=== PATIENT | male | born 1995 | race Hispanic/Latino ===

== ENCOUNTER 2022-01-12 15:55 | Emergency (ER) | payer OTHER ==
--- NOTE | 2022-01-12 17:13 | RAD REPORT ---
EXAM DESCRIPTION: RAD - Hand Right 3 View - 01/12/2022 4:43 pm CLINICAL HISTORY: PAIN COMPARISON: No comparisons FINDINGS/IMPRESSION: Fracture is present at the base of the fifth metacarpal. There is likely intra- articular extension. Soft tissue swelling is present.
--- NOTE | 2022-01-12 18:03 | ER ---
Nurse's Notes [facility] Name: Simón Perez Age: 26 yrs Sex: Male : 1995 Arrival Date: 01/12/2022 Time: 15:58 Bed 11 Private MD: Diagnosis: Displaced fracture of base of fifth metacarpal bone, right hand Presentation: 01/12 16:01 Chief complaint: Patient states: R hand pain after punching wall. Superficial abrasions ss noted to all knuckles on affected hand. Coronavirus screen: Client denies travel out of the [place] in the last 14 days. Ebola Screen: Patient denies exposure to infectious person. Patient denies travel to an Ebola-affected area in the 21 days before illness onset. Initial Sepsis Screen: Does the patient meet any 2 criteria? No. Patient's initial sepsis screen is negative. Does the patient have a suspected source of infection? No. Patient's initial sepsis screen is negative. Risk Assessment: Do you want to hurt yourself or someone else? Patient reports no desire to harm self or others. Onset of symptoms was January 12, 2022. 16:01 Method Of Arrival: Ambulatory ss 16:01 Acuity: CABRERA 4 ss Historical: - Allergies: 16:08 No Known Allergies; ss - Home Meds: 16:08 None [Active]; ss - PMHx: 16:08 None; ss - PSHx: 16:08 None; ss - Immunization history:: Client reports receiving the 2nd dose of the Covid vaccine. - Social history:: Smoking status: Patient denies any tobacco usage or history of. Screenin:06 Abuse screen: Denies threats or abuse. Nutritional screening: No deficits noted. bm7 Tuberculosis screening: No symptoms or risk factors identified. Fall Risk None identified. Assessment: 17:06 Reassessment: No changes from previously documented assessment. Patient and/or family bm7 updated on plan of care and expected duration. Pain level reassessed. Patient is alert, oriented x 3, equal unlabored respirations, skin warm/dry/pink. Vital Signs: 16:01 BP 136 / 94; Pulse 101; Resp 16; Temp 98.2(TE); Pulse Ox 99% ; Weight 68.04 kg; Pain ss 7/10; 18:14 BP 140 / 88; Pulse 90; Resp 16; Pulse Ox 100% on R/A; Pain 4/10; bm7 ED Course: 15:58 Patient arrived in ED. ss 16:00 Fatemeh Moser FNP-C [facility]. kb 16:00 Jose Minaya MD is Attending Physician. kb 16:08 Triage completed. ss 16:08 Arm band placed on left wrist. ss 16:45 Hand Right 3 View XRAY In Process Unspecified. EDMS 17:06 Stefani Ordoñez, RN is Primary Nurse. bm7 17:06 No apparent distress. Resting quietly. Awaiting for x-ray. bm7 17:06 Patient has correct armband on for positive identification. Call light in reach. Adult bm7 w/ patient. Security at bedside. Warm blanket given. 17:06 Patient maintains SpO2 saturation greater than 95% on room air. bm7 18:01 No provider procedures requiring assistance completed. Patient did not have IV access ss during this emergency room visit. Orthoglass splint: Ulnar gutter/Boxer splint applied on right forearm. Administered Medications: No medications were administered Medication: 17:06 VIS not applicable for this client. bm7 Outcome: 18:03 Discharge ordered by . 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 wound care, Demonstrated understanding of instructions, follow-up care, wound care. 18:15 Patient left the ED. bm7 Signatures: Dispatcher [employer] [facility] Fatemeh Moser FNP-C FNP-Ckb Smirch, Shelby RN RN Stefani Ordoñez, RN RN bm7
--- NOTE | 2022-01-12 18:04 | EDPHYS ---
Physician Documentation [facility] Name: Simón Perez Age: 26 yrs Sex: Male : 1995 Arrival Date: 01/12/2022 Time: 15:58 Bed 11 Private MD: ED Physician Jose Minaya HPI: 01/13 00:15 This 26 yrs old Male presents to ER via Ambulatory with complaints of Hand kb Injury. 00:15 The patient or guardian reports decreased range of motion, injury, pain, swelling, kb tenderness. The complaints affect the dorsum of right hand. Context: The problem was sustained at a [facility], resulted from using own fist to strike, a wall. Onset: The symptoms/episode began/occurred at 12:00. Modifying factors: The symptoms are alleviated by nothing, the symptoms are aggravated by movement. Associated signs and symptoms: The patient has no apparent associated signs or symptoms. Severity of symptoms: At their worst the symptoms were moderate, in the emergency department the symptoms are unchanged. The patient has not experienced similar symptoms in the past. The patient has not recently seen a physician. Historical: - Allergies: 01/12 16:08 No Known Allergies; ss - Home Meds: 16:08 None [Active]; ss - PMHx: 16:08 None; ss - PSHx: 16:08 None; ss - Immunization history:: Client reports receiving the 2nd dose of the Covid vaccine. - Social history:: Smoking status: Patient denies any tobacco usage or history of. ROS: 01/13 00:15 Constitutional: Negative for fever, chills, and weight loss. kb MS/extremity: Positive for injury or acute deformity, decreased range of motion, pain, swelling, tenderness, of the dorsum of right hand. All other systems are negative. Exam: 00:15 Constitutional: This is a well developed, well nourished patient who is awake, alert, kb and in no acute distress. Head/Face: Normocephalic, atraumatic. ENT: Moist Mucous membranes Respiratory: Respirations even and unlabored. No increased work of breathing. Talking in full sentences Neuro: Awake and alert, GCS 15, oriented to person, place, time, and situation. Moves all extremities. Normal gait. Psych: Awake, alert, with orientation to person, place and time. Behavior, mood, and affect are within normal limits. 00:15 Musculoskeletal/extremity: Extremities: grossly normal except: noted in the dorsum of right hand: decreased ROM, pain, swelling, tenderness, ROM: limited active range of motion due to pain, in the dorsum of right hand, Circulation is intact in all extremities. Sensation intact. 00:15 Skin: injury, abrasion(s), very small abrasion noted, of the dorsum of right hand. Vital Signs: 01/12 16:01 BP 136 / 94; Pulse 101; Resp 16; Temp 98.2(TE); Pulse Ox 99% ; Weight 68.04 kg; Pain ss 7/10; 18:14 BP 140 / 88; Pulse 90; Resp 16; Pulse Ox 100% on R/A; Pain 4/10; bm7 MDM: 16:00 Patient medically screened. kb 01/13 00:17 Data reviewed: vital signs, nurses notes. Data interpreted: Pulse oximetry: on room air kb is 100 %. Interpretation: normal. Counseling: I had a detailed discussion with the patient and/or guardian regarding: the historical points, exam findings, and any diagnostic results supporting the discharge/admit diagnosis, radiology results, the need for outpatient follow up, a orthopedic surgeon, to return to the emergency department if symptoms worsen or persist or if there are any questions or concerns that arise at home. 01/12 16:00 Order name: Hand Right 3 View XRAY; Complete Time: 17:22 kb 01/12 17:23 Order name: Ulnar Gutter splint; Complete Time: 18:01 kb Administered Medications: No medications were administered Disposition Summary: 01/12/22 18:03 Discharge Ordered Condition: Stable kb Location: [employer](01/12/22 18:03) kb Diagnosis - Displaced fracture of base of fifth metacarpal bone, right hand kb Followup: kb - With: Emergency Department - When: As needed - Reason: Worsening of condition Followup: kb - With: Private Physician - When: 2 - 3 days - Reason: Recheck today's complaints, Continuance of care, Re-evaluation by your physician Discharge Instructions: - Discharge Summary Sheet kb - Metacarpal Fracture, [id number] kb Forms: - Medication Reconciliation Form kb - Thank You Letter kb - Antibiotic Education kb - Prescription Opioid Use kb Addendum: 20:32 Co-signature as Attending Physician, Jose Minaya MD. r n Signatures: Dispatcher [employer] Fatemeh King, TOUR SALES REPRESENTATIVE-C TOUR SALES REPRESENTATIVE-Ckb Jose Minaya MD MD rn Smirch, Shelby, RN RN ss Stefani Ordoñez RN RN bm7 Corrections: (The following items were deleted from the chart) 01/12 18:03 18:03 Home kb kb
[2022-01-13 11:13] VITALS: BP 140/88; O2SAT 100
== END 2022-01-12 18:15 ==
LOC: ER 15:55
PROC: 2W3CX1Z Immobilization of Right Lower Arm using Splint (ICD-10-PCS; principal; 2022-01-12)
DX: S62.316A Displaced fracture of base of fifth metacarpal bone, right hand, initial encounter for closed fracture (principal)
CPT/HCPCS: 99285